=== PATIENT | male | born 1970 | race Caucasian/White ===

== ENCOUNTER → 2016-08-28 | Outpatient (CLI) | payer BC ==
[~2016-08-28] MED LIST: AMOX500C5 PO
[2016-08-28 18:26] VITALS: BP 146/96
--- NOTE | 2016-08-28 18:26 | Urgent Care T Sheet Gen (E) ---
Intake General Temperature (Fahrenheit): 98.2 Pulse: 60 Blood Pressure Systolic: 146 Blood Pressure Diastolic: 96 Respirations: 18 SPO2: 98 Chief Complaint: Ear/Nose/Throat Complaint Description of Symptoms This 46 y/o man is here today because of URI symptoms. He has had them since last week and has been treating them as allergies without any relief. He has had sore throat because of post nasal drainage and his chest has felt tight with coughing. He and his family are leaving tomorrow for 3 weeks in [place]. He denies any fever. His PCP is Dr. Lozada. Source: Patient History of Present Illness Onset & Duration: Days (7) Timing: Still present Severity: Mild Associated Symptoms: Cough, Nasal congestion, Sinus congestion Respiratory Constitutional Symptoms: No syptoms reported EENTM: See HPI Nose Congestion Throat pain Respiratory: See HPI CoughNo Short of breath, No Wheezing Cardiovascular: No symptoms reported Gastrointestinal/Abdominal: No symptoms reported Genitourinary: No symptoms reported Musculoskeletal: No symptoms reported Skin: No symptoms reported Neurological: No symptoms reported Hematologic/Lymphatic: No symptoms reported Immunologic/Allergies: No symptoms reported All Other Systems Reviewed Remaining Systems: All other systems reviewed with negative findings Physical Exam Physical Exam General Appearance: WD/WN No apparent distress Eyes, Ears, Nose, Throat Ex: PERRL/EOMI Normal ENT inspection TMs normal Pharynx normal Other (mild cobblestoning noted to the posterior pharynx. ) Neck Exam: Non tender Full range of motion Supple Normal inspection Normal thyroid Lymphadenopathy (mild shoddy nodes noted to the superior aspect of the anterior cervical chain bilaterally. ) Respiratory Exam: Chest non-tender Lungs clear Normal breath sounds No respiratory distress No accessory muscles used Cardiovascular Exam: Regular rate, rhythm No edema No gallop No JVD No murmur Skin Exam: Normal color Warm/dry/intact No rashes No embolic lesions Departure Urgent Care Impression Chief Complaint: Ear/Nose/Throat Complaint Impression: Primary Impression: Sinusitis Departure Disposition: 01 HOME OR SELF-CARE Condition: Stable Referrals: DAVIS LOZADA MD (PCP) Additional Instructions: I have reviewed with the patient his instructions with the Amoxil. I have suggested he drink lots of water and he may want to use some Mucinex over the counter. If no improvement obviously he will need to follow up once he returns from his trip. The patient was comfortable with the treatment plan as outlined. Scripts Amoxicillin (Amoxil)500 Mg [id number] Mg PO BID Infection #40 CAP Ref 0 2 capsules po bid for 10 days. Prov:JACQUELYN MEDINA 08/28/16 End of report . JACQUELYN MEDINA August 28, 2016 18:26
== END ==
LOC: MHUC 18:02
PROVIDERS: ATTEND Physician Assistant Medical
DX: J32.9 Chronic sinusitis, unspecified (principal)
CPT/HCPCS: 99213